=== PATIENT | female | born 1990 | race Caucasian/White ===

== ENCOUNTER 2016-07-20 04:15 | Inpatient (IN) | payer MEDICAID, OTHER ==
[2016-07-20 04:52] VITALS: BMI 31.9
[2016-07-20] MEDS ORDERED: ceFAZolin 2 GM in Sodium Chloride 0.9% 100 ML IVPB ONE (05:06)
[2016-07-20] MEDS ORDERED: Lactated Ringer's 1,000 ML IV SCH ×3 (05:15→10:00)
[2016-07-20 05:42] VITALS: BP 112/74; PULSE 96; RESP 18; TEMP 98; O2SAT 100
[2016-07-20 06:20] LABS: EOS # 0.1 K/uL (0.0-0.7); EOS % 1.7 % (0.0-4.0); HEMATOCRIT 32.4 % (34.0-47.0); LYMPH # 1.9 K/uL (1.0-4.3); LYMPH % 24.1 % (20.0-40.0); MEAN CELL VOLUME 87.9 fl (81.0-99.0); MEAN CORPUSCULAR HEMOGLOBIN 29.6 pg (27.0-31.0); MEAN CORPUSCULAR HGB CONC 33.6 g/dL (33.0-37.0); MONO # 0.8 K/uL (0.0-0.8); MONO % 9.8 % (0.0-10.0); NEUT # 5.2 K/uL (1.8-7.0); NEUT % 64.4 % (50.0-75.0); NRBC % 0.1 % (0.0-0.0); RED CELL DISTRIBUTION WIDTH 14.5 % (11.5-14.5)
[2016-07-20] MEDS ORDERED: OXYTOCIN IV ONE (07:23)
[2016-07-20] MEDS ORDERED: LR IV ONE (07:23)
[2016-07-20] MEDS ORDERED: Morphine 1 mg/ml preservative-free Inj(Duramorph) ONE (08:04)
[2016-07-20] MEDS ORDERED: Morphine 1 mg/ml preservative-free Inj(Duramorph) IT ONE (08:56)
--- NOTE | 2016-07-20 09:32 | OBADHP ---
Datetime: 07/20/2016 06:00 Admit Comment, IP Provider: 26 y/o F IUP at 39w presents for scheduled C-Sect due to elective r epeat C-Sect. Denies VB, LOF, CTXs. Allergies: NKA Meds: PNV ObHx: 1 previous C-Sect. PNC at [facility] 39 w. LMP 10/21/15 AMBIKA 07/27/16 GBS, Gc/Chl, RPR, HIV, Hep B all neg SxHx: C-Sect PE: See above A: 26 y/o F IUP at 39w. term . Scheduled C-Sect P: -Admit to unit -Initiate C-Sect protocol - monitoring -Abx prophylaxis -Anesthesiology consult -CBC/Type_Screen Case discussed with Dr Radha Rhodes PGY1 obh addendum pt seen _ examined by me. informed consent obtained for rpeat Datetime: 07/20/2016 05:35 Pelvic Type - PN: Adequate Extremities - PN: Normal Abdomen - PN: Normal Back - PN: Normal Breast - PN: Normal Lungs - PN: Normal Heart - PN: Normal Thyroid - PN: Normal Neurologic - PN: Normal HEENT - PN: Normal General - PN: Normal Gestation - Est Wks by US: 39.0 IP Hx Assessment: The History has been Reviewed and is Current Vital Signs Provider: Reviewed IP Chief Complaint: Scheduled Section NICHD Decel Fetus A IP Provider: None Genitourinary Exam: Normal DTRs - PN: Not Done EGA AdmitDate IP: 39.0 IP Adm Impression: Term, intrauterine IP Admit Plan: Admit to unit; Initiate Section protocol
--- NOTE | 2016-07-20 09:46 | OBDS ---
DELIVERY PERSONNEL Nurse Ultrasound Technologist Sonographer Certified: Lesly Jones CNM Delivery Doctor: Abdiaziz Austin MD [employer] Supervisor: Bernadette Denton RN/ Shelbi Awan RN / Ada Rios RN Anesthesiologist: natalie forrester Resident: Md García MATERNAL INFORMATION Delivery Anesthesia: Spinal Medications in Delivery: pit Placenta Cultured: No Maternal Complications: None Provider Comments: Pre-op dx: 26 yo at 39 wks e/ previous c/s, declines Post-op dx: Same Procedure: Repeat low transverse section Surgeon: [facility] Benefits Coordinator: Dr. Garcia, Whit Jones, [facility], Dr. Chrissy Brewer, PGY-1 Anesthesia: Spinal Findings: Viable female delivered through clear fluid at 08:40am. Apgars 9 and 9. Wt 3720g ms, 8#3, Nl appearing uterus, left ovary, right ovary w/ grossly appearing simple cyst LABOR SUMMARY EDC: 07/27/2016 00:00 No. Babies in Womb: 1 Attempted: No Labor Anesthesia: Intrathecal LABOR INFORMATION Reason for Induction: Not Applicable Oxytocin: N/A Group B Beta Strep: Negative Antibiotics # of Doses: 1 Antibiotics Time of Last Dose: 08:30 Steroids Given: None Reason Steroids Not Administered: Not Applicable MEMBRANES Membranes Rupture Method: Artificial Rupture of Membranes: 07/20/2016 08:40 Length of Rupture (hrs): 0.00 Amniotic Fluid Color: Clear Amniotic Fluid Amount: Moderate Amniotic Fluid Odor: None STAGES OF LABOR Stage 3 hrs: 0 Stage 3 min: 1 VAGINAL DELIVERY Episiotomy: None Laceration Extension: N/A Laceration Type: None Laceration Repair: Not Applicable Sponge Count Correct: N/A Sharps Count Correct: N/A CSECTION DELIVERY Primary Indication: Repeat Elective Secondary Indication: N/A CSection Urgency: Elective CSection Incidence: Primary Labor: N/A Elective: Elective CSection Incision: Lower Uterine Transverse BABY A INFORMATION Delivery Date/Time: 07/20/2016 08:40 Method of Delivery: Born in Route : Yes : N/A Forceps: N/A Vacuum Extraction: N/A Shoulder Dystocia : No SHOULDER DYSTOCIA BABY A Delivery Date/Time: 07/20/2016 08:40 PRESENTATION/POSITION BABY A Presentation: Cephalic PLACENTA INFORMATION BABY A Placenta Delivery Time : 07/20/2016 08:41 Placenta Method of Delivery: Manual Removal Placenta Status: Delivered SCORES BABY A Heart Rate 1 min: >100 bpm Resp Effort 1 min: Good Cry Reflex Irritability 1 min: Cough or Sneeze or Pulls Away Muscle Tone 1 min: Active Motion Color 1 min: Body [facility], Extremities Blue Resuscitation Effort 1 min: N/A SCORE 1 MIN: 9 Heart Rate 5 min: >100 bpm Resp Effort 5 min: Good Cry Reflex Irritability 5 min: Cough or Sneeze or Pulls Away Muscle Tone 5 min: Active Motion Color 5 min: Body [facility], Extremities Blue Resuscitation Effort 5 min: N/A SCORE 5 MIN: 9 INFANT INFORMATION BABY A Gestational Age at Delivery: 39.0 Gestational Status: Term Outcome : Liveborn Infant Condition : Stable Sex: Female IDENTIFICATION/MEDS BABY A ID Band Number: [id number] ID Band Location: Left Leg; Left Arm WEIGHT/LENGTH BABY A Birthweight (gms): 3720 Weight (lb): 8 Weight (oz): 3 CORD INFORMATION BABY A No. Cord Vessels: 3 Nuchal Cord : Around Neck x1, Loose Nuchal Cord Other: N/A True Knot: N/A Cord pH Baby Arterial: N/A Infant Cord pH Baby Venous: N/A Cord Blood Taken: Yes Banking/Donate Info: N/A Suction: Mouth; Nose ASSESSMENT BABY A Complications: None Physical Findings at Delivery: Within Normal Limits Infant Respirations: Appears Normal Coremaker Machine/ALS Called : No Infant Care By: DR Basurto Transferred To: Remains with Mother
[2016-07-20] MEDS ORDERED: Oxycodone/Acetaminophen 5/325 mg Tab PO PRN ×2 (09:49)
[2016-07-20] MEDS ORDERED: DiphenhydrAMINE 50 mg/ml Inj IVP PRN ×2 (10:06→12:56)
[2016-07-20] MEDS ORDERED: Naloxone 0.4 mg/ml Inj (Adult) IVP PRN ×2 (11:42→12:56)
--- NOTE | 2016-07-20 11:59 | OP ---
PROCEDURE DATE: 07/20/2016 PREOPERATIVE DIAGNOSIS: A 26-year-old -0-0-1 at 39 weeks with a previous section declining vaginal after . POSTOPERATIVE DIAGNOSIS: A 26-year-old -0-0-1 at 39 weeks with a previous section declining vaginal after . PROCEDURE: Repeat low transverse section. SURGEON: Yessenia Austin MD. RELAY MOTORMAN: Dr. Garcia, Whit Jones, [facility], and Dr. Chrissy Brewer, PGY-1. Dr. Garcia was the surgical aides teacher and participated in the surgery for the entire duration of the case. She helped create exposure. She also helped maintain hemostasis, operated throughout the case on the side of the patient that was across from her and assisted in the delivery of the by applying fundal pressure. This case could not have been completed without her assistance. FINDINGS: A viable female infant delivered through clear fluid at 8:40 a.m., nuchal cord x 1. Apgars were 9 and 9 at 1 and 5 minutes respectively. The weight was 3720 grams or 8 pounds 3 ounces. Normal-appearing uterus, left ovary and a right ovary with grossly-appearing simple cyst. DESCRIPTION OF PROCEDURE: The patient was taken to the operating room where spinal anesthesia was placed. A Barber was placed in the bladder. She was then prepped and draped in the normal sterile fashion in the dorsal supine position with a leftward tilt. The spinal was tested and found to be adequate. A Pfannenstiel skin incision was then made with the scalpel over the previous scar and carried through to the underlying layer of fascia with the Bovie. The fascia was incised in the midline, and the incision was extended laterally with the Bovie over a Samantha. The inferior aspect of the fascial incision was then grasped with Issa clamps, elevated, and the underlying rectus muscles were dissected off bluntly and with the Bovie. Attention was then turned to the superior aspect of this incision, which in a similar fashion was grasped, tented up with Issa clamps and elevated. Rectus muscles were dissected off bluntly. The rectus muscles were then in the midline. The peritoneum was identified, tented up, and entered sharply with Metzenbaum scissors. The peritoneal incision was then extended superiorly and inferiorly with good visualization of the bladder. On both sides, superiorly, the rectus muscles were slightly incised with the Bovie to make more room for the delivery. The bladder blade was then inserted, and the vesicouterine peritoneum was identified, grasped with pickups, and entered sharply with the Metzenbaum scissors. The incision was then extended laterally , and the bladder flap was created digitally. The bladder blade was then reinserted, and lower uterine segment was incised in a transverse fashion with the scalpel. The uterine incision was then extended in a cephalocaudad direction digitally. The bladder blade was removed, and the infant's head delivered atraumatically. Nuchal cord was easily reduced. The nose and mouth were suctioned with the bulb suction. The cord was clamped and cut. The infant was handed off to the waiting marine fireman. Cord blood was collected. The placenta was then delivered as the uterus was massaged. The uterus was then exteriorized and cleared of all clots and debris with a dry sponge curettage. The uterine incision was repaired with 0 Vicryl in a running locked fashion. A second layer of the same suture was used in an imbricating fashion for hemostasis and to reinforce the incision. A few interrupted stitches of 0 Vicryl were placed for bleeding at the incision, and then 2 interrupted stitches of 0 Monocryl were placed finally for hemostasis on the right side of the incision. The abdomen was then well-irrigated. The uterus was returned to the abdomen. The gutters were cleared of all clots. The rectus muscles were examined for some slight oozing, and the Bovie was applied for hemostasis. Surgicel was placed over the uterine incision. The fascia was reapproximated with 0 Vicryl in a running fashion. Subcutaneous fat was well-irrigated. The Bovie was applied to small bleeders. A running stitch of 2-0 plain gut was used to close the space of the fat. The skin was then closed with delfino. The patient tolerated the procedure well. Sponge, lap, and needle counts were correct. The patient received 2 grams of Ancef prior to the procedure. The patient was taken to the recovery room in stable condition. Yessenia Austin MD cc: [id number] TT: 07/20/2016 11:58:30 [facility] # [id number] [email or web address]
[2016-07-20] MEDS: Oxycodone/Acetaminophen 5/325 mg Tab PO PRN ×2 (16:28→23:31)
[2016-07-20] MEDS: Lactated Ringer's 1,000 ML IV SCH (20:22)
[2016-07-21] MEDS: Lactated Ringer's 1,000 ML IV SCH ×2 (04:31→04:33)
[2016-07-21] MEDS: Oxycodone/Acetaminophen 5/325 mg Tab PO PRN ×3 (06:49→20:43)
[2016-07-21 07:24] LABS: BASO % 0.1 % (0.0-2.0); EOS # 0.1 K/uL (0.0-0.7); EOS % 1.6 % (0.0-4.0); HEMATOCRIT 29.9 % (34.0-47.0); LYMPH # 1.6 K/uL (1.0-4.3); LYMPH % 19.6 % (20.0-40.0); MEAN CORPUSCULAR HEMOGLOBIN 29.3 pg (27.0-31.0); MEAN CORPUSCULAR HGB CONC 32.9 g/dL (33.0-37.0); MEAN PLATELET VOLUME 10.4 fl (7.2-11.7); MONO # 0.8 K/uL (0.0-0.8); MONO % 10.1 % (0.0-10.0); NEUT # 5.7 K/uL (1.8-7.0); NEUT % 68.6 % (50.0-75.0); RED CELL DISTRIBUTION WIDTH 14.2 % (11.5-14.5); WHITE BLOOD COUNT 8.3 K/uL (4.8-10.8)
--- NOTE | 2016-07-21 10:49 | OBPPN ---
Datetime: 07/21/2016 06:23 PP Pain Prov: Within normal limits PP Nausea Prov: Denies PP Flatus Prov: No PP BM Prov: No PP Breasts Prov: Not Done PP Heart Prov: Normal PP Lungs Prov: Normal PP Abdomen/Uterus Prov: Normal PP Lochia Prov: Normal PP Vulva/Perineum Prov: Not Done PP CVA Tenderness Prov: Normal PP Extremities Prov: Normal PP C/S Incision Prov: Normal PP Progress Prov: Normal PP Comments Phys Exam Prov: alert and oriented No resp distress, tolerating decubitus abd soft, uterus umb level +BS. Dressing removed. [place] in place, wound clean and dry No calf tenderness PP Impression Prov: Normal progression PP Plan Prov: Continue present management PP Progress Note Prov: POD1 Patient seen at bedside in not acute distress. She is tolerating PO, rouse in place to be removed this morning. No BM or flatus yet. Dressing removed and wound is clean and dry, delfino in place. Loc hia like menses. Pain controlled with meds. SCV in place. O: See above A: s/p C-Sect POD1. Normal progression P: Cont motrin and percocet prn for pain Reg diet Senokot S HS Encourage ambulation Anticipated DC 07/23/16 Jeremy Rhodes PGY1 OBHospitalist on-call..I saw and examined this patient....agree with note...LONNY H/H 01/26 Anemia asymptomatic IP PP Procedures: None Vital Signs Provider PP: Reviewed
[2016-07-21] MEDS: Simethicone 80 mg Chewtab PO SCH (20:43)
[2016-07-21] MEDS: Docusate-Senna 50 mg-8.6 mg Tab PO SCH (23:00)
--- NOTE | 2016-07-22 09:03 | OBPPN ---
Datetime: 07/22/2016 05:27 PP Pain Prov: Within normal limits PP Nausea Prov: Denies PP Flatus Prov: Yes PP BM Prov: No PP Breasts Prov: Normal PP Heart Prov: Normal PP Lungs Prov: Normal PP Abdomen/Uterus Prov: Normal PP Lochia Prov: Normal PP Vulva/Perineum Prov: Not Done PP CVA Tenderness Prov: Normal PP Extremities Prov: Normal PP C/S Incision Prov: Normal PP Progress Prov: Normal PP Comments Phys Exam Prov: alert and oriented No resp distress, tolerating decubitus abd soft, diffuse tenderness, uterus umb level. Hypertympanic +BS. Victor Manuel in place, wound clean and dry No calf tenderness PP Impression Prov: Normal progression PP Plan Prov: Continue present management PP Progress Note Prov: POD2 Patient seen at bedside in not acute distress. She is tolerating PO, voiding with no difficulty. N o BM. +Flatus. Lochia like menses. Pain controlled with meds. C/O bloating, improved since yesterday. No nausea or vomiting. Denies CP, SOB or calf pain. O: See above A: s/p C-Sect POD2. Asymptomatic Thrombocytopenia plt count 98--->86 Manual plt 112 on admission P: F/U repeat manual plt Cont motrin and percocet prn for pain Reg diet Cont Senokot S HS and Simethicone Encourage ambulation Anticipated DC 07/23/16 Jeremy Rhodes PGY1 OBHospitalist on-call Yesterday, this patient was discussed with Dr Rhodes because of low PLT. No signs of bleeding but low PLT noted again post op. He ordered manual count which still was not resulted. Today, I sa w and examined this patient....agree with note...Still awaiting final report of PLT LONNY LONGORIA PP Procedures: None Vital Signs Provider PP: Reviewed; Within Normal Limits
[2016-07-22] MEDS: Simethicone 80 mg Chewtab PO SCH ×3 (09:05→18:16)
[2016-07-22] MEDS: Lactated Ringer's 1,000 ML IV SCH (12:55)
[2016-07-22] MEDS: Oxycodone/Acetaminophen 5/325 mg Tab PO PRN (19:57)
[2016-07-22] MEDS: Docusate-Senna 50 mg-8.6 mg Tab PO SCH (22:22)
[2016-07-23] MEDS: Lactated Ringer's 1,000 ML IV SCH (09:16)
[2016-07-23] MEDS: Simethicone 80 mg Chewtab PO SCH (09:17)
--- NOTE | 2016-07-23 12:51 | OBPPN ---
Datetime: 07/23/2016 09:04 PP Pain Prov: Within normal limits PP Nausea Prov: Denies PP Flatus Prov: Yes PP BM Prov: Yes PP Breasts Prov: Normal PP Heart Prov: Normal PP Lungs Prov: Normal PP Abdomen/Uterus Prov: Normal PP Lochia Prov: Normal PP Vulva/Perineum Prov: Normal PP CVA Tenderness Prov: Normal PP Extremities Prov: Normal PP C/S Incision Prov: Normal PP Comments Phys Exam Prov: incision clean and dry, delfino in place. PP Impression Prov: Normal progression PP Plan Prov: Discharge PP Progress Note Prov: POD#3 s/p S: Patient tolerating regular diet, no nausea/vomiting, +flatus, +BM. No difficulty with ambulatio n. Pain is controlled. breast/bottle feeding. O: as above A/P: 26 s/p repeat doing well post op -regular diet -pain control with motrin/percocet -encouraged OOB and ambulation -colace Salomón [place] PGY1 (Annotations: Data stored by CPN on behalf of user) Vital Signs Provider PP: Reviewed; Within Normal Limits
== END 2016-07-23 12:25 | disposition home or self-care (01) | DRG 370 ==
LOC: H.EROB2 04:15 → H.L&D 04:53 → H.OB/GYN 12:15
PROVIDERS: ADMIT Obstetrics & Gynecology; ATTEND Obstetrics & Gynecology
PROC: 10D00Z1 Extraction of Products of Conception, Low, Open Approach (ICD-10-PCS; principal; 2016-07-20)
PROC: 4A1HXCZ Monitoring of Products of Conception, Cardiac Rate, External Approach (ICD-10-PCS; 2016-07-20)
DX: O34.211 Maternal care for low transverse scar from previous cesarean delivery (principal); O72.3 Postpartum coagulation defects; D69.6 Thrombocytopenia, unspecified; O69.81X0 Labor and delivery complicated by cord around neck, without compression, not applicable or unspecified; Z3A.39 39 weeks gestation of pregnancy; Z37.0 Single live birth